=== PATIENT | female | born 1985 | race Caucasian/White ===

== ENCOUNTER 2017-09-22 19:46 | Emergency (ER) | payer MEDICAID ==
[~2017-09-22] VITALS: Ht 152.4 cm; Wt 47.0 kg
[2017-09-22 22:23] LABS: APPEARANCE,URINE CLOUDY (CLEAR); BILIRUBIN,URINE NEGATIVE (NEGATIVE); GLUCOSE, URINE (UA) NEGATIVE (NEGATIVE); KETONES,URINE TRACE mg/dL (NEGATIVE); LEUKOCYTE ESTERASE ,URINE SMALL (NEGATIVE); NITRATE,URINE POSITIVE (NEGATIVE); OCCULT BLOOD,URINE NEGATIVE (NEGATIVE); PH,URINE 6.5 (5.0-8.0); PROTEIN,URINE NEGATIVE (NEGATIVE); UROBILINOGEN,URINE 0.2 mg/dL (<=1.0)
[2017-09-22 22:25] LABS: HCG,QUAL RESULT NEGATIVE (NEGATIVE)
[2017-09-22 22:30] LABS: BACTERIA,URINE Many /HPF (None Seen); RBC,URINE 0-2 /HPF (0-2); SQUAMOUS EPITHELIAL CELL,UR Moderate /LPF (None Seen)
[2017-09-22 23:30] VITALS: BP 122/82
[2017-09-22] MEDS ORDERED: CefTRIAXone SODIUM 1 GM/VIAL IM ONE (23:45)
[2017-09-22] MEDS ORDERED: LIDOCAINE HCL/PF 1% 2 ML VIAL IM ONE (23:45)
[2017-09-22] MEDS ORDERED: AZITHROMYCIN 250 MG TABLET PO ONE (23:45)
== END 2017-09-22 23:59 | disposition home or self-care (01) ==
LOC: EMS 19:48
DX: N76.0 Acute vaginitis (principal)
CPT/HCPCS: 81001; 84703; 87077; 87086; 87210; 87491; 87591; 96372; 99284; J0696; J3490

== ENCOUNTER 2017-12-22 20:35 | Emergency (ER) | payer SELFPAY ==
[~2017-12-22] VITALS: Ht 149.9 cm; Wt 5.5 kg
[2017-12-22 22:40] VITALS: BP 142/87
== END 2017-12-22 22:41 | disposition home or self-care (01) ==
LOC: EMS 20:36
DX: L03.113 Cellulitis of right upper limb (principal)
CPT/HCPCS: 99283

== ENCOUNTER 2022-06-28 00:18 | Emergency (ER) | payer OTHER ==
[~2022-06-28] VITALS: Ht 149.9 cm; Wt 60.0 kg
[2022-06-28] MEDS ORDERED: SODIUM CHLORIDE 0.9% 1,000 ML IV ONE (01:00)
[2022-06-28] MEDS ORDERED: KETOROLAC TROMETHAMINE 30 MG/ML VIAL IVP ONE (01:00)
[2022-06-28 01:20] LABS: BASOPHILS % (AUTO) 0.8 % (0.0-2.0); EOSINOPHILS % (AUTO) 1.8 % (1.0-6.0); HEMATOCRIT 39.5 % (36-46); HEMOGLOBIN 13.2 g/dL (12.0-16.0); LYMPHOCYTES # (AUTO) 0.9 K/uL (1.0-4.8); LYMPHOCYTES % (AUTO) 9.7 % (22.0-44.0); MEAN CORPUSCULAR HEMOGLOBIN 30.2 pg (26.0-34.0); MEAN CORPUSCULAR HGB CONC 33.3 G/dL (31.0-37.0); MEAN CORPUSCULAR VOLUME 91 fL (80-100); MONOCYTES # (AUTO) 0.6 K/uL (0.1-1.0); MONOCYTES % (AUTO) 6.1 % (2.0-9.0); NEUTROPHILS # (AUTO) 7.7 K/uL (1.8-7.7); NEUTROPHILS % (AUTO) 81.6 % (40.0-70.0); PLATELET COUNT (AUTO) 314 K/uL (150-450); RED BLOOD CELL COUNT(AUTO) 4.36 MIL/uL (4.00-5.20); RED CELL DISTRIBUTION WIDTH 14.1 % (11.5-14.5)
[2022-06-28 01:28] LABS: ANION GAP 9 mmol/L (8-16); CALCIUM, TOTAL 8.9 mg/dL (8.8-10.5); CARBON DIOXIDE 26 mmol/L (22-29); CHLORIDE 106 mmol/L (98-107); CREATININE 0.62 mg/dL (0.60-1.30); GLUCOSE,RANDOM 71 mg/dL (70-110); POTASSIUM 3.6 mmol/L (3.5-5.1); SODIUM SERUM 141 mmol/L (136-145); UREA NITROGEN, BLOOD 9 mg/dL (7-18)
[2022-06-28 01:29] LABS: GLOMERULAR FILTR. RATE CALC > 60 mL/min (>60)
[2022-06-28 01:34] LABS: ALANINE AMINOTRANSFERASE 16 U/L (12-78); ALBUMIN 3.3 g/dL (3.4-5.0); ALKALINE PHOSPHATASE 82 U/L (46-116); ASPARTATE AMINOTRANSFERASE 13 U/L (15-37); BILIRUBIN,TOTAL 0.4 mg/dL (0.1-1.0); TOTAL PROTEIN, SERUM 7.3 g/dL (6.4-8.2)
[2022-06-28] MEDS ORDERED: TRAM-559 PO ×2 (02:35→04:37)
[2022-06-28] MEDS ORDERED: HYDROmorphone HCL 2 MG/ML SYRINGE IVP ONE (02:45)
[2022-06-28] MEDS ORDERED: ONDANSETRON HCL 4 MG/2 ML VIAL IVP ONE (02:45)
[2022-06-28 04:43] VITALS: BP 122/88
== END 2022-06-28 06:36 | disposition home or self-care (01) ==
LOC: EMS 00:19
DX: R51.9 Headache, unspecified (principal); F41.9 Anxiety disorder, unspecified; Z98.890 Other specified postprocedural states
CPT/HCPCS: 99284; 96374; 70450; 96375; 96361; 80053; 84703; 85025; 36415; J1170; J1885; J2405; J7030

== ENCOUNTER 2023-02-06 00:46 | Emergency (ER) | payer OTHER ==
[~2023-02-06] VITALS: Ht 149.9 cm; Wt 54.5 kg
[~2023-02-06 00:46] MED LIST: TRAM-559 PO
[2023-02-06] MEDS ORDERED: PERTUSS(ACELL),DIPH,TET VAC/PF 0.5 ML SYRINGE IM. ONE (02:15)
[2023-02-06] MEDS ORDERED: BACITRACIN 0.9 GM PACKET OINTMENT TP ONE (02:15)
[2023-02-06 06:00] VITALS: BP 118/68
== END 2023-02-06 06:43 | disposition home or self-care (01) ==
LOC: EMS 00:46
DX: S61.411A Laceration without foreign body of right hand, initial encounter (principal); X58.XXXA Exposure to other specified factors, initial encounter; Y93.89 Activity, other specified; Y92.89 Other specified places as the place of occurrence of the external cause; Y99.8 Other external cause status
CPT/HCPCS: 12001; 90471; 90715; 99283